=== PATIENT | female | born 1985 | race Caucasian/White ===

== ENCOUNTER → 2018-04-25 | Outpatient (CLI) | payer BC ==
--- NOTE | 2018-04-25 10:47 | US ---
EXAMINATION TYPE: US venous doppler duplex LE LT DATE OF EXAM: 04/25/2018 10:34 AM COMPARISON: NONE CLINICAL HISTORY: R60.0 EDEMA. leg numbness that has decreased but ankle swells SIDE PERFORMED: Left TECHNIQUE: The lower extremity deep venous system is examined utilizing real time linear array sonog berkley with graded compression, doppler sonography and color-flow sonography. VESSELS IMAGED: External Iliac Vein (EIV) Common Femoral Vein Deep Femoral Vein Greater Saphenous Vein * Femoral Vein Popliteal Vein Small Saphenous Vein * Proximal Calf Veins (* superficial vessels) Left Leg: Appear negative for DVT IMPRESSION: No evidence for DVT.
== END ==
LOC: RADUSWWP 10:11
PROVIDERS: ATTEND Internal Medicine
DX: R60.0 Localized edema (principal)